=== PATIENT | male | born 1985 | race African-American/Black ===

== ENCOUNTER 2018-06-02 11:08 | Emergency (ER) | payer MEDICAID ==
[~2018-06-02] VITALS: Ht 190.5 cm; Wt 154.2 kg
[2018-06-02 11:15] VITALS: BP_SYST 161
[2018-06-02] MEDS ORDERED: DIPH-TET-PERTUS Vaccine 0.5 ML VIAL (ADACEL) I.M. ONE (12:00)
[2018-06-02 12:30] VITALS: BP_SYST 122
== END 2018-06-02 12:30 | disposition home or self-care (01) ==
LOC: SED 11:08
DX: S61.012A Laceration without foreign body of left thumb without damage to nail, initial encounter (principal); E11.9 Type 2 diabetes mellitus without complications; W26.0XXA Contact with knife, initial encounter; Y93.89 Activity, other specified; Y92.89 Other specified places as the place of occurrence of the external cause; Y99.8 Other external cause status
CPT/HCPCS: 90715; 99283